=== PATIENT | male | born 1930 | race Caucasian/White ===

== ENCOUNTER → 2016-11-13 | Outpatient (CLI) | payer MEDICARE, OTHER ==
[2016-11-14 11:56] LABS: PROSTATE SPECIFIC ANTIGEN 18.3 ng/mL (0.0-4.0); PSA % FREE 22.9 % (.); PSA FREE 4.19 ng/mL
[2016-11-16 07:11] LABS: PROSTATIC ACID PHOS SERUM 1.1 ng/mL (0.0-3.5)
== END ==
LOC: OD 12:45
PROVIDERS: ATTEND Urology
DX: N40.1 Benign prostatic hyperplasia with lower urinary tract symptoms (principal); N41.1 Chronic prostatitis; M19.90 Unspecified osteoarthritis, unspecified site
CPT/HCPCS: 36415; 84066; 84154

== ENCOUNTER → 2017-06-04 | Outpatient (CLI) | payer MEDICARE, OTHER ==
[2017-06-04 15:12] LABS: PROSTATE SPECIFIC ANTIGEN 20.9 ng/mL (<4.00)
== END ==
LOC: OD 12:46
PROVIDERS: ATTEND Urology
DX: C61 Malignant neoplasm of prostate (principal)
CPT/HCPCS: 36415; 84075; 84153